=== PATIENT | female | born 1990 | race Caucasian/White ===

== ENCOUNTER 2019-09-22 17:42 | Inpatient (IN) | payer OTHER ==
--- NOTE | 2019-09-22 23:16 | HP ---
COWS - Scale Resting Pulse: 1= [place] 81-100 Sweatin=Flushed/Facial Moisture Restless Observation: 1= Difficult to Sit Still Pupil Size: 1= Pupils >than Normal Bone or Joint Aches: 4=Acute Joint/Muscle Pain Runny Nose/ Eye Tearin= Runny Nose/Eyes GI Upset > 30mins: 3= Vomiting/Diarrhea (omiting x 2, diarrhea x 3) Tremor Observation: 2= Slight Tremor Visible Yawning Observation: 1= 1-2x During Session Anxiety or Irritability: 2=Irritable/Anxious Goose Flesh Skin: 0=Smooth Skin COWS Score: 19 CIWA Score - Admission Criteria OASAS Guidelines: Admission for Medically Managed Detox: Requires at least one of the followin. CIWA greater than 12 2. Seizures within the past 24 hours 3. Delirium tremens within the past 24 hours 4. Hallucinations within the past 24 hours 5. Acute intervention needed for co occurring medical disorder 6. Acute intervention needed for co occurring psychiatric disorder 7. Severe withdrawal that cannot be handled at a lower level of care (continued vomiting, continued diarrhea, abnormal vital signs) requiring intravenous medication and/or fluids 8. Admission ROS [facility] Chief Complaint: Seeking admission to detox from heroin Allergies/Adverse Reactions: Allergies Allergy/AdvReac Type Severity Reaction Status Date / Time No Known Allergies Allergy Verified 09/22/19 23:12 History of Present Illness: 29 years old female is seeking admission to detox. This is her first admission t [facility], her last admission was at [facility] She is very very delirious, uncooperative, talking to herself and unable to answer questions. She reports history of anemia and refused to answer if she has any psych. history but secondary to her mannerisms, patient is being transferred to [facility] for evaluation for evaluation. Exam Limitations: Clinical Condition - Ebola screening Have you traveled outside of the country in the last 21 days: No Have you had contact with anyone from an Ebola affected area: No Have you been sick,other than usual withdrawal symptoms: No Do you have a fever: No Patient History - Patient Medical History Hx Anemia: Yes Hx Asthma: No Hx Chronic Obstructive Pulmonary Disease (COPD): No Hx Cancer: No Hx Cardiac Disorders: No Hx Congestive Heart Failure: No Hx Hypertension: No Hx Hypercholesterolemia: No Hx Pacemaker: No HX Cerebrovascular Accident: No Hx Dementia: No Hx Diabetes: No Hx Gastrointestinal Disorders: No Hx Liver Disease: No Hx Genitourinary Disorders: No Hx Sexually Transmitted Disorders: No Hx Renal Disease (ESRD): No Hx Thyroid Disease: No Hx Human Immunodeficiency Virus (HIV): No (Negative 2020) Hx Hepatitis C: No Hx Depression: Yes Hx Suicide Attempt: No (Attempt at age, denies suicidal ideation at this time.) Hx Bipolar Disorder: No Hx Schizophrenia: No - Patient Surgical History Past Surgical History: No - PPD History Previous Implant?: Yes Documented Results: Negative w/o proof Implanted On Prior [facility] Admission?: No PPD to be Administered?: Yes - Reproductive History Patient is a Female of Child Bearing Age (11 -55 yrs old): Yes Last Menstrual Period: 09/13/19 - Smoking Cessation Smoking history: Current every day smoker Have you smoked in the past 12 months: Yes Aproximately how many cigarettes per day: 80 Hx Chewing Tobacco Use: No Initiated information on smoking cessation: Yes 'Breaking Loose' booklet given: 09/22/19 - Substance & Tx. History Hx Alcohol Use: No Hx Substance Use: Yes Substance Use Type: Cocaine, Heroin Hx Substance Use Treatment: Yes Screened but not Admitted - Documentation of Visit Screened but not Admitted: Yes Left Prior to Completion of Assessment: No Insurance Authorization Denied: No Level of Care Recommended at this Time: ER Evaluation/Care Additional Information/Explanation: Patient is very very delirious, uncooperative, talking to herself, argumentative and refusing to answer questions. She reports history of anemia and refused to answer if she has any psych. history but secondary to her mannerisms, patient is being transferred to [facility] for further for evaluation. Breathalyzer - Breathalyzer Breathalyzer: 0 Urine Drug Screen - Test Device Lot number: [id number] Expiration date: 06/07/21 - Control Is test valid?: Yes - Results Drug screen NEGATIVE: No Urine drug screen results: ANIRUDH-Cocaine, MET-Methamphetamine, AMP-Amphetamines, FEN-Fentanyl, MOP-Opiates Inpatient Rehab Admission - Rehab Decision to Admit Inpatient rehab admission?: No
== END 2019-09-23 00:01 | disposition short-term general hospital (02) | DRG 897 ==
LOC: YASAS 17:42 → Y6N 23:28
PROVIDERS: ADMIT Allergy & Immunology; ATTEND Allergy & Immunology
PROC: HZ2ZZZZ Detoxification Services for Substance Abuse Treatment (ICD-10-PCS; principal; 2019-09-22)
DX: F11.23 Opioid dependence with withdrawal (principal); F17.210 Nicotine dependence, cigarettes, uncomplicated; F32.9 Major depressive disorder, single episode, unspecified; Z86.2 Personal history of diseases of the blood and blood-forming organs and certain disorders involving the immune mechanism
CPT/HCPCS: 36415; 80053; 81025; 85027; 86780; 93005; 93010; U0003

== ENCOUNTER 2019-09-23 11:05 | Inpatient (IN) | payer OTHER ==
--- NOTE | 2019-09-23 14:19 | BHS.RME ---
Substance Use & Tx History - Substance Use History Heroin Substance amount: 7 bags Frequency of use: Daily Substance route: Injection (ex: intravenous or skin popping) Date of Last Use: 09/22/19 - Last Treatment Date of last treatment: [place] 03/2019 Where was last treatment: Detox Physical/Psych/Mental Status - Behavior Eye Contact: Normal - Cooperativeness Cooperativeness: Cooperative - Thinking Thought Processes: Logical Thought content: Future oriented - Physical Health Problems Is patient presently having any pain?: No Does patient presently have any injuries (include location): No Does patient currently have a fever: No COWS - Scale Resting Pulse: 1= [place] 81-100 Sweatin= Chills/Flushing Restless Observation: 0= Sits Still Pupil Size: 1= Pupils >than Normal Bone or Joint Aches: 2= Severe Diffuse Aches Runny Nose/ Eye Tearin= Runny Nose/Eyes GI Upset > 30mins: 2= Nausea/Diarrhea Tremor Observation: 2= Slight Tremor Visible Yawning Observation: 2= >3x During Session Anxiety or Irritability: 2=Irritable/Anxious Goose Flesh Skin: 3=Piloerection COWS Score: 18
--- NOTE | 2019-09-23 14:25 | HP ---
COWS - Scale Resting Pulse: 1= [place] 81-100 Sweatin= Chills/Flushing Restless Observation: 0= Sits Still Pupil Size: 1= Pupils >than Normal Bone or Joint Aches: 2= Severe Diffuse Aches Runny Nose/ Eye Tearin= Runny Nose/Eyes GI Upset > 30mins: 2= Nausea/Diarrhea Tremor Observation: 2= Slight Tremor Visible Yawning Observation: 2= >3x During Session Anxiety or Irritability: 2=Irritable/Anxious Goose Flesh Skin: 3=Piloerection COWS Score: 18 CIWA Score - Admission Criteria OASAS Guidelines: Admission for Medically Managed Detox: Requires at least one of the followin. CIWA greater than 12 2. Seizures within the past 24 hours 3. Delirium tremens within the past 24 hours 4. Hallucinations within the past 24 hours 5. Acute intervention needed for co occurring medical disorder 6. Acute intervention needed for co occurring psychiatric disorder 7. Severe withdrawal that cannot be handled at a lower level of care (continued vomiting, continued diarrhea, abnormal vital signs) requiring intravenous medication and/or fluids 8. Admitting History and Physical - Admission Chief Complaint: i need help to sto using heroin History of Present Illness: this 29 years old female with heroin dependence seeking detox,withdrawal symptom, clear by [facility] return to [facility],first time to this facility History Source: Patient Limitations to Obtaining History: No Limitations - Past Medical History ...LMP: 08/26/19 ...: No Psych: Yes: Addictions - Smoking History Smoking history: Current every day smoker Have you smoked in the past 12 months: Yes Aproximately how many cigarettes per day: 80 - Alcohol/Substance Use Hx Alcohol Use: No History of Substance Use: reports: Heroin Date of Last Use: 09/22/19 - Social History Usual Living Arrangement: Yes: Alone ADL: Support Services Occupation: unemployed History of Recent Travel: No Other Social History: unemployed,no legal issue Admission ROS [facility] Chief Complaint: i need help to stop using heroin Allergies/Adverse Reactions: Allergies Allergy/AdvReac Type Severity Reaction Status Date / Time No Known Allergies Allergy Verified 09/23/19 16:21 History of Present Illness: this 30 years old female with heroin dependence seeking detox, Exam Limitations: No Limitations - Ebola screening Have you traveled outside of the country in the last 21 days: No Have you had contact with anyone from an Ebola affected area: No Have you been sick,other than usual withdrawal symptoms: No Do you have a fever: No - Review of Systems Constitutional: Malaise, Night Sweats, Changes in sleep, Weakness EENT: reports: Nose Congestion Respiratory: reports: No Symptoms reported Cardiac: reports: No Symptoms Reported GI: reports: Nausea, Abdominal cramping : reports: No Symptoms Reported Musculoskeletal: reports: Back Pain, Muscle Pain Integumentary: reports: Dryness Neuro: reports: Tremors Endocrine: reports: No Symptoms Reported Hematology: reports: No Symptoms Reported Psychiatric: reports: No Sypmtoms Reported, Judgement Intact, Mood/Affect Appropiate, Orientated x3 Other Systems: Reviewed and Negative Patient History - Patient Medical History Hx Anemia: Yes Hx Asthma: No Hx Chronic Obstructive Pulmonary Disease (COPD): No Hx Cancer: No Hx Cardiac Disorders: No Hx Congestive Heart Failure: No Hx Hypertension: No Hx Hypercholesterolemia: No Hx Pacemaker: No HX Cerebrovascular Accident: No Hx Dementia: No Hx Diabetes: No Hx Gastrointestinal Disorders: No Hx Liver Disease: No Hx Genitourinary Disorders: No Hx Sexually Transmitted Disorders: No Hx Renal Disease (ESRD): No Hx Thyroid Disease: No Hx Human Immunodeficiency Virus (HIV): No (Negative 2019) Hx Hepatitis C: No Hx Depression: Yes Hx Suicide Attempt: No ( denies suicidal ideation at this time.) Hx Bipolar Disorder: No Hx Schizophrenia: No Other Medical History: no suicidal,no homicidal - Patient Surgical History Past Surgical History: No - PPD History Previous Implant?: Yes Documented Results: Negative w/o proof Implanted On Prior [facility] Admission?: No PPD to be Administered?: Yes - Reproductive History Patient is a Female of Child Bearing Age (11 -55 yrs old): Yes Last Menstrual Period: 08/26/19 Patient : No - Smoking Cessation Smoking history: Current every day smoker Have you smoked in the past 12 months: Yes Aproximately how many cigarettes per day: 80 Hx Chewing Tobacco Use: No Initiated information on smoking cessation: Yes 'Breaking Loose' booklet given: 09/23/19 - Substance & Tx. History Hx Alcohol Use: No Hx Substance Use: Yes Substance Use Type: Heroin Hx Substance Use Treatment: Yes (03/30 [place]) - Substances abused Heroin Substance route: Injection Frequency: Daily Amount used: 7 bags Age of first use: 18 Date of last use: 09/22/19 Admission Physical Exam [facility] - Vital Signs Vital Signs: t98.3,p84,bp 198/65,r18 - Physical General Appearance: Yes: Moderate Distress, Irritable, Sweating, Anxious HEENTM: Yes: Normal ENT Inspection, NIDA, Pharynx Normal Respiratory: Yes: Lungs Clear, Normal Breath Sounds, No Respiratory Distress Neck: Yes: Within Normal Limits, Supple, Trachea in good position Breast: Yes: Breast Exam Deferred Cardiology: Yes: Within Normal Limits, Regular Rhythm, Regular Rate, S1, S2 Abdominal: Yes: Within Normal Limits, Normal Bowel Sounds, Non Tender, Soft Genitourinary: Yes: Within Normal Limits Back: Yes: Muscle Spasm Musculoskeletal: Yes: Back pain, Muscle Pain Extremities: Yes: Tremors Neurological: Yes: precision lens generator II-XII NML intact, Fully Oriented, Alert, Motor Strength 5/5 Integumentary: Yes: Dry, Track Knight Lymphatic: Yes: Within Normal Limits - Diagnostic (1) Opioid dependence with withdrawal Current Visit: Yes Status: Acute (2) IVDU (intravenous drug user) Current Visit: Yes Status: Acute (3) Nicotine dependence Current Visit: Yes Status: Acute (4) Dehydration Current Visit: Yes Status: Acute Cleared for Admission [facility] - Detox or Rehab [facility] Level of Care: Medically Managed Detox Regimen/Protocol: Methadone Breathalyzer - Breathalyzer Breathalyzer: 0 Urine Drug Screen - Test Device Lot number: [id number] Expiration date: 06/07/21 - Control Is test valid?: Yes - Results Drug screen NEGATIVE: No Urine drug screen results: ANIRUDH-Cocaine, MET-Methamphetamine, AMP-Amphetamines, FEN-Fentanyl, MOP-Opiates Inpatient Rehab Admission - Rehab Decision to Admit Inpatient rehab admission?: No
[2019-09-23 16:29] VITALS: BMI 18.6
[2019-09-23] MEDS ORDERED: METHADONE HCL 10 MG TABLET (FOR DETOX USE ONLY) PO ONE ×2 (16:35→23:45)
[2019-09-23] MEDS ORDERED: cloNIDine HCL 0.1 MG TABLET PO PRN (16:35)
[2019-09-23] MEDS ORDERED: NALOXONE HCL 0.4 MG/ML VIAL IM PRN (16:35)
[2019-09-23] MEDS ORDERED: ONDANSETRON *ODT* 4 MG TABLET SL ONE (16:36)
[2019-09-23] MEDS ORDERED: MENTHOL/PHENOL 1 EACH UD MM PRN (16:36)
[2019-09-23] MEDS ORDERED: IBUPROFEN 400 MG TABLET (FP) PO PRN (16:36)
[2019-09-23] MEDS ORDERED: ACETAMINOPHEN 325 MG TABLET (FP) PO PRN ×2 (16:36)
[2019-09-23] MEDS ORDERED: MAG HYDROX/AL HYDROX/SIMETH 30 ML UNIT-DOSE CUP PO PRN (16:36)
[2019-09-23] MEDS ORDERED: MAGNESIUM CITRATE 300 ML BOTTLE PO PRN (16:36)
[2019-09-23] MEDS ORDERED: METHOCARBAMOL 500 MG TABLET PO PRN (16:36)
[2019-09-23] MEDS ORDERED: MAGNESIUM HYDROX 2400MG/30ML ORAL SUSPENSION 30 ML CUP PO PRN (16:36)
[2019-09-23] MEDS ORDERED: NICOTINE POLACRILEX 2 MG GUM BUC PRN (16:36)
[2019-09-23] MEDS ORDERED: BISMUTH SUBSALICYLATE 524 MG/30 ML UD PO PRN (16:36)
[2019-09-23] MEDS: NICOTINE 21 MG/24 HOURS TOPICAL PATCH TD SCH (20:01)
[2019-09-23] MEDS: hydrOXYzine PAMOATE 25 MG CAPSULE (FP) PO SCH (20:02)
[2019-09-24] MEDS: THIAMINE HCL 100 MG TABLET (FP) PO SCH ×2 (00:06→22:56)
[2019-09-24] MEDS: hydrOXYzine PAMOATE 25 MG CAPSULE (FP) PO SCH ×6 (00:06→22:56)
[2019-09-24] MEDS: MELATONIN 5 MG TABLETS PO SCH ×2 (00:26→22:56)
[2019-09-24] MEDS ORDERED: METHADONE HCL 10 MG TABLET (FOR DETOX USE ONLY) ONE (09:40)
[2019-09-24] MEDS ORDERED: METHADONE HCL 5 MG TABLET (FOR DETOX USE ONLY) ONE (09:41)
[2019-09-24] MEDS ORDERED: METHADONE (DETOX) 20 MG, METHADONE (DETOX) 5 MG PO ONE (10:00)
[2019-09-24] MEDS ORDERED: NICOTINE 7 MG/24 HOURS TOPICAL PATCH TD SCH (10:00)
--- NOTE | 2019-09-24 10:13 | PN ---
BHS COWS - Scale Resting Pulse: 0= [place] 80 or Below Sweatin= Chills/Flushing Restless Observation: 0= Sits Still Pupil Size: 1= Pupils >than Normal Bone or Joint Aches: 2= Severe Diffuse Aches Runny Nose/ Eye Tearin= None GI Upset > 30mins: 2= Nausea/Diarrhea Tremor Observation of Outstretched Hands: 2= Slight Tremor Visible Yawning Observation: 0= None Anxiety or Irritability: 2=Irritable/Anxious Goose Flesh Skin: 3=Piloerection COWS Score: 13 BHS Progress Note (SOAP) Subjective: 29 years old female admitted on 09/23/19 for opiate withdrawal sx management treating with methadone detox regimetn ate small amount of breakfast in room ensure 120 ml po tid with meals Objective: 09/24/19 10:14 Vital Signs - 24 hr 09/23/19 09/23/19 09/23/19 16:24 17:03 21:14 Temperature 98.3 F 96.9 F L 97.3 F L Pulse Rate 84 76 54 L Respiratory 18 17 18 Rate Blood Pressure 198/65 H 105/66 94/66 O2 Sat by Pulse 100 100 Oximetry (%) 09/24/19 07:26 Temperature 97.3 F L Pulse Rate 53 L Respiratory 16 Rate Blood Pressure 102/64 O2 Sat by Pulse 100 Oximetry (%) 09/24/19 10:14 lab pending Assessment: 09/24/19 10:14 opiate withdrawal 09/24/19 10:15 bmi 18.6 Plan: methadone regiment ensure
[2019-09-24 10:38] LABS: ALBUMIN 3.1 g/dl (3.4-5.0); CREATININE 0.6 mg/dL (0.55-1.3); POTASSIUM 4.4 mmol/L (3.5-5.1); TOT PROT 6.4 g/dl (6.4-8.2)
[2019-09-24 10:41] LABS: BILIRUBIN,TOTAL 0.4 mg/dL (0.2-1)
[2019-09-24 10:47] LABS: HEMATOCRIT 35.4 % (32.4-45.2); HEMOGLOBIN 11.4 GM/dL (10.7-15.3); MCH 26.6 pg (25.7-33.7); MCHC 32.2 g/dl (32.0-36.0); MEAN CELL VOLUME 82.7 fl (80-96); MEAN PLT VOLUME 7.7 fl (7.5-11.1); PLATELET COUNT 272 K/MM3 (134-434); RBC 4.28 M/mm3 (3.60-5.2); RDW 13.7 % (11.6-15.6); WHITE BLOOD COUNT 8.9 K/mm3 (4.0-10.0)
[2019-09-24] MEDS: PRENATAL VITAMINS W/ FOLIC ACID TABLET (FP) PO SCH (11:45)
[2019-09-24] MEDS: NICOTINE 21 MG/24 HOURS TOPICAL PATCH TD SCH (11:45)
--- NOTE | 2019-09-24 18:53 | EKG ---
Test Reason : Blood Pressure : / mmHG Vent. Rate : 064 BPM Atrial Rate : 064 BPM P-R Int : 122 ms QRS Dur : 082 ms QT Int : 414 ms P-R-T Axes : 063 073 063 degrees QTc Int : 427 ms NORMAL SINUS RHYTHM WITH SINUS ARRHYTHMIA NORMAL ECG NO PREVIOUS ECGS AVAILABLE Confirmed by MD ADORE, LACHELLE ([id number]) on 09/24/2019 6:53:19 PM Referred By: Confirmed By:LACHELLE AVITIA MD
[2019-09-25] MEDS: hydrOXYzine PAMOATE 25 MG CAPSULE (FP) PO SCH ×2 (07:02→11:05)
[2019-09-25 09:52] VITALS: BP 99/63; PULSE 74; TEMP 97.3
[2019-09-25] MEDS ORDERED: METHADONE HCL 10 MG TABLET (FOR DETOX USE ONLY) PO ONE (10:00)
--- NOTE | 2019-09-25 10:06 | PN ---
BHS COWS - Scale Resting Pulse: 0= [place] 80 or Below Sweatin= Chills/Flushing Restless Observation: 0= Sits Still Pupil Size: 1= Pupils >than Normal Bone or Joint Aches: 2= Severe Diffuse Aches Runny Nose/ Eye Tearin= Nasal Congestion GI Upset > 30mins: 2= Nausea/Diarrhea Tremor Observation of Outstretched Hands: 1= Tremor [place], Not Seen Yawning Observation: 2= >3x During Session Anxiety or Irritability: 1=Feels Anxious/Irritable Goose Flesh Skin: 0=Smooth Skin COWS Score: 11 S Progress Note (SOAP) Subjective: 29 years old female admitted on 09/23/19 for opiate withdrawal sx management treating with methadone detox regiment ate 60% breakfast continue ensure supplement Objective: 09/25/19 10:07 Vital Signs - 24 hr 09/24/19 09/24/19 09/24/19 11:15 16:48 20:27 Temperature 98.8 F 97.1 F L 96.6 F L Pulse Rate 72 54 L 61 Respiratory 16 16 17 Rate Blood Pressure 108/73 95/56 L 100/54 L O2 Sat by Pulse 99 Oximetry (%) 09/25/19 09/25/19 06:55 08:53 Temperature 97.1 F L 97.3 F L Pulse Rate 64 74 Respiratory 16 18 Rate Blood Pressure 97/63 99/63 O2 Sat by Pulse 100 Oximetry (%) Laboratory Tests 09/23/19 09/23/19 09/24/19 14:00 14:26 08:00 WBC RBC Hgb Hct MCV MCH MCHC RDW Plt Count MPV Sodium Potassium Chloride Carbon Dioxide Anion Gap BUN Creatinine Est GFR (CKD-EPI)AfAm Est GFR (CKD-EPI)NonAf Random Glucose Calcium Total Bilirubin AST ALT Alkaline Phosphatase Total Protein Albumin POC Urine HCG, Qual Negative Syphilis Serology Non-reactive COVID-19 (GIOVANNI) Not detected 09/24/19 09/24/19 08:00 08:00 WBC 8.9 RBC 4.28 Hgb 11.4 Hct 35.4 MCV 82.7 MCH 26.6 MCHC 32.2 RDW 13.7 Plt Count 272 MPV 7.7 Sodium 141 Potassium 4.4 Chloride 110 H Carbon Dioxide 23 Anion Gap 9 BUN 9.0 Creatinine 0.6 Est GFR (CKD-EPI)AfAm 140.77 Est GFR (CKD-EPI)NonAf 121.46 Random Glucose 76 Calcium 9.0 Total Bilirubin 0.4 AST 20 ALT 18 Alkaline Phosphatase 63 Total Protein 6.4 Albumin 3.1 L POC Urine HCG, Qual Syphilis Serology COVID-19 (GIOVANNI) lab noted Assessment: 09/25/19 10:07 opiate withdrawal Plan: methadone regiment
[2019-09-25] MEDS: PRENATAL VITAMINS W/ FOLIC ACID TABLET (FP) PO SCH (11:05)
[2019-09-25] MEDS: NICOTINE 21 MG/24 HOURS TOPICAL PATCH TD SCH (11:05)
--- NOTE | 2019-09-25 13:04 | DS ---
[facility] Detox Discharge Summary Admission Date: 09/23/19 Discharge Date: 09/25/19 - History Present History: Opioid Dependence Additional Comments: 29 years old female was admitted on 09/23/19 for opiate withdrawal sx management treated with methadone detox regimebt ms smith insists to leave the detox unit today "I have to go back to foster" ms smith is alert oriented x 3 refuses to discuss reason for leaving the detox with medical staff General Appearance: Yes: Moderate Distress, Irritable, Sweating, Anxious HEENTM: Yes: Normal ENT Inspection, NIDA, Pharynx Normal Respiratory: Yes: Lungs Clear, Normal Breath Sounds, No Respiratory Distress Neck: Yes: Within Normal Limits, Supple, Trachea in good position Breast: Yes: Breast Exam Deferred Cardiology: Yes: Within Normal Limits, Regular Rhythm, Regular Rate, S1, S2 Abdominal: Yes: Within Normal Limits, Normal Bowel Sounds, Non Tender, Soft Genitourinary: Yes: Within Normal Limits Back: Yes: Muscle Spasm Musculoskeletal: Yes: Back pain, Muscle Pain Extremities: Yes: Tremors Neurological: Yes: director of programming II-XII NML intact, Fully Oriented, Alert, Motor Strength 5/5 Integumentary: Yes: Dry, Track Knight Lymphatic: Yes: Within Normal Limits Pertinent Past History: time for discharge 49 minutes treatment team met with ms smith to discuss benefits of methadone regiment completion ms is guarded denies suicidal denies homocidal no self destructive behavior noted against medical advice is appropriated - Physical Exam Results Vital Signs: Vital Signs Temperature 97.3 F L 09/25/19 08:53 Pulse Rate 74 09/25/19 08:53 Respiratory Rate 18 09/25/19 08:53 Blood Pressure 99/63 09/25/19 08:53 O2 Sat by Pulse Oximetry (%) 100 09/25/19 06:55 Pertinent Admission Physical Exam Findings: opiate withdrawal Laboratory Tests 09/23/19 09/23/19 09/24/19 14:00 14:26 08:00 WBC RBC Hgb Hct MCV MCH MCHC RDW Plt Count MPV Sodium Potassium Chloride Carbon Dioxide Anion Gap BUN Creatinine Est GFR (CKD-EPI)AfAm Est GFR (CKD-EPI)NonAf Random Glucose Calcium Total Bilirubin AST ALT Alkaline Phosphatase Total Protein Albumin POC Urine HCG, Qual Negative Syphilis Serology Non-reactive COVID-19 (GIOVANNI) Not detected 09/24/19 09/24/19 08:00 08:00 WBC 8.9 RBC 4.28 Hgb 11.4 Hct 35.4 MCV 82.7 MCH 26.6 MCHC 32.2 RDW 13.7 Plt Count 272 MPV 7.7 Sodium 141 Potassium 4.4 Chloride 110 H Carbon Dioxide 23 Anion Gap 9 BUN 9.0 Creatinine 0.6 Est GFR (CKD-EPI)AfAm 140.77 Est GFR (CKD-EPI)NonAf 121.46 Random Glucose 76 Calcium 9.0 Total Bilirubin 0.4 AST 20 ALT 18 Alkaline Phosphatase 63 Total Protein 6.4 Albumin 3.1 L POC Urine HCG, Qual Syphilis Serology COVID-19 (GIOVANNI) lab noted - Treatment Hospital Course: Detox Protocol Followed, Responded well, Discharged Condition Good Patient has Accepted a Rehab Referral to: community support resources / NA - Medication Discharge Medications: Ambulatory Orders NK [No Known Home Medication] 09/23/19 - Diagnosis (1) Substance induced mood disorder Status: Suspected (2) Nicotine dependence Status: Acute Qualifiers: Nicotine product type: cigarettes Substance use status: in withdrawal Qualified Code(s): F17.213 - Nicotine dependence, cigarettes, with withdrawal (3) Opioid dependence with withdrawal Status: Acute - AMA Did Patient Leave Against Medical Advice: Yes COWS (PN) - Opiate Withdrawal Resting Pulse: 0= [place] 80 or Below Sweatin= Chills/Flushing Restless Observation: 0= Sits Still Pupil Size: 1= Pupils >than Normal Bone or Joint Aches: 1= Mild Discomfort Runny Nose/ Eye Tearin= None GI Upset > 30mins: 2= Nausea/Diarrhea Tremor Observation of Outstretched Hands: 2= Slight Tremor Visible Yawning Observation: 0= None Anxiety or Irritability: 2=Irritable/Anxious Goose Flesh Skin: 0=Smooth Skin COWS Score: 9
[2019-09-26] MEDS ORDERED: METHADONE (DETOX) 10 MG, METHADONE (DETOX) 5 MG PO ONE (10:00)
[2019-09-27] MEDS ORDERED: METHADONE HCL 10 MG TABLET (FOR DETOX USE ONLY) PO ONE (10:00)
[2019-09-28] MEDS ORDERED: METHADONE HCL 5 MG TABLET (FOR DETOX USE ONLY) PO ONE (06:00)
== END 2019-09-25 10:50 | disposition left against medical advice (07) | DRG 894 ==
LOC: YASAS 11:05 → Y3N 16:18
PROVIDERS: ADMIT Allergy & Immunology; ATTEND Allergy & Immunology
PROC: HZ2ZZZZ Detoxification Services for Substance Abuse Treatment (ICD-10-PCS; principal; 2019-09-23)
DX: F11.23 Opioid dependence with withdrawal (principal); F17.213 Nicotine dependence, cigarettes, with withdrawal; F19.24 Other psychoactive substance dependence with psychoactive substance-induced mood disorder; F32.9 Major depressive disorder, single episode, unspecified; E86.0 Dehydration; D64.9 Anemia, unspecified
CPT/HCPCS: 36415; 80053; 81025; 85027; 86780; 93005; 93010; U0003

== ENCOUNTER 2019-11-08 14:52 | Inpatient (IN) | payer OTHER ==
--- NOTE | 2019-11-08 15:35 | BHS.RME ---
Substance Use & Tx History - Substance Use History Heroin Substance amount: 3 bundles Frequency of use: Daily Substance route: Injection (ex: intravenous or skin popping) Date of Last Use: 11/07/19 Nicotine Substance amount: one pack Frequency of use: Daily Substance route: Smoking Date of Last Use: 11/08/19 - Last Treatment Date of last treatment: September 22-, left AMA Where was last treatment: Detox Physical/Psych/Mental Status - Behavior General Behavior: Decreased activity Eye Contact: Normal - Cooperativeness Cooperativeness: Cooperative - Thinking Thought Processes: Tight Thought content: Future oriented - Physical Health Problems Is patient presently having any pain?: No Does patient presently have any injuries (include location): No Does patient currently have a fever: No COWS - Scale Resting Pulse: 1= [place] 81-100 Sweatin=Flushed/Facial Moisture Restless Observation: 1= Difficult to Sit Still Pupil Size: 0= Normal to Room Light Bone or Joint Aches: 1= Mild Discomfort Runny Nose/ Eye Tearin= Runny Nose/Eyes GI Upset > 30mins: 2= Nausea/Diarrhea Tremor Observation: 1= Tremor [place], Not Seen Yawning Observation: 0= None Anxiety or Irritability: 2=Irritable/Anxious Goose Flesh Skin: 0=Smooth Skin COWS Score: 12
[2019-11-08 16:50] VITALS: BMI 20.6
--- NOTE | 2019-11-08 17:07 | HP ---
COWS - Scale Resting Pulse: 1= [place] 81-100 Sweatin=Flushed/Facial Moisture Restless Observation: 1= Difficult to Sit Still Pupil Size: 0= Normal to Room Light Bone or Joint Aches: 2= Severe Diffuse Aches Runny Nose/ Eye Tearin= Runny Nose/Eyes GI Upset > 30mins: 2= Nausea/Diarrhea Tremor Observation: 1= Tremor Kaufman, Not Seen Yawning Observation: 1= 1-2x During Session Anxiety or Irritability: 2=Irritable/Anxious Goose Flesh Skin: 3=Piloerection COWS Score: 17 CIWA Score - Admission Criteria [facility]ASAS Guidelines: Admission for Medically Managed Detox: Requires at least one of the followin. CIWA greater than 12 2. Seizures within the past 24 hours 3. Delirium tremens within the past 24 hours 4. Hallucinations within the past 24 hours 5. Acute intervention needed for co occurring medical disorder 6. Acute intervention needed for co occurring psychiatric disorder 7. Severe withdrawal that cannot be handled at a lower level of care (continued vomiting, continued diarrhea, abnormal vital signs) requiring intravenous medication and/or fluids 8. Admitting History and Physical - Admission Chief Complaint: Pt is a 29 yo F presenting for opioid detox; "want to get clean from heroin." History of Present Illness: Pt is a 29 yo F presenting for opioid detox; "want to get clean from heroin." Pt was last here at 09/22-09/25/19 (left AMA) - was sent to [facility] for bizarre behavior during that time. Pt reports she will complete detox and rehab this time and will sign a contract. Pt reports no significant periods of time of sobriety since she started using, including after she left detox. Pt reports no specific triggers or stressors that contribute to her use. Pt reports no amphetamine use, reports possibly "cut with heroin." PMH, PSH - none Psych - pt reports no current psychiatric illnesses - zoloft, trazadone prescribed in past (pt is non-specific regarding this) Soc/Domiciled - homeless currently Legal - none - Substance Use History Heroin Substance amount: 3 bundles Frequency of use: Daily Substance route: Injection (ex: intravenous or skin popping) Date of Last Use: 11/07/19 Nicotine Substance amount: one pack Frequency of use: Daily Substance route: Smoking Date of Last Use: 11/08/19 Crack Cocaine amount - minimal frequency - 1/month route - smoking - Last Treatment Date of last treatment: September 22-, left AMA Where was last treatment: Detox History Source: Patient Limitations to Obtaining History: No Limitations - Past Medical History ...LMP: 08/26/19 Psych: Yes: Addictions - Smoking History Smoking history: Current every day smoker Have you smoked in the past 12 months: Yes Aproximately how many cigarettes per day: 80 - Alcohol/Substance Use Hx Alcohol Use: No History of Substance Use: reports: Heroin Date of Last Use: 09/22/19 - Social History ADL: Support Services Occupation: unemployed History of Recent Travel: No Admission [facility] Allergies/Adverse Reactions: Allergies Allergy/AdvReac Type Severity Reaction Status Date / Time No Known Allergies Allergy Verified 09/23/19 16:21 - Ebola screening Have you traveled outside of the country in the last 21 days: No Have you been sick,other than usual withdrawal symptoms: No Do you have a fever: No - Review of Systems Constitutional: Chills, Diaphoresis, Changes in sleep (insomnia), Unintentional Wgt. Loss (7-10 lbs over the last 7 months) EENT: reports: Other (rhinorrhea/lacrimation) Respiratory: reports: No Symptoms reported Cardiac: reports: No Symptoms Reported GI: reports: Diarrhea, Nausea : reports: No Symptoms Reported Musculoskeletal: reports: Muscle Pain (diffuse muscle aches that are worsening) Integumentary: reports: Flushing, Sweating Neuro: reports: Headache, Tremors Endocrine: reports: Flushing Hematology: reports: No Symptoms Reported Psychiatric: reports: Orientated x3, Agitated, Anxious Patient History - Patient Medical History Hx Anemia: Yes Hx Asthma: No Hx Chronic Obstructive Pulmonary Disease (COPD): No Hx Cancer: No Hx Cardiac Disorders: No Hx Congestive Heart Failure: No Hx Hypertension: No Hx Hypercholesterolemia: No Hx Pacemaker: No HX Cerebrovascular Accident: No Hx Seizures: No Hx Dementia: No Hx Diabetes: No Hx Gastrointestinal Disorders: No Hx Liver Disease: No Hx Genitourinary Disorders: No Hx Sexually Transmitted Disorders: No Hx Renal Disease (ESRD): No Hx Thyroid Disease: No Hx Human Immunodeficiency Virus (HIV): No (Negative 2020) Hx Hepatitis C: No Hx Depression: Yes Hx Suicide Attempt: No ( denies suicidal ideation at this time.) Hx Bipolar Disorder: No Hx Schizophrenia: No - Patient Surgical History Past Surgical History: No Hx Neurologic Surgery: No Hx Cataract Extraction: No Hx Cardiac Surgery: No Hx Lung Surgery: No Hx Breast Surgery: No Hx Breast Biopsy: No Hx Abdominal Surgery: No Hx Appendectomy: No Hx Cholecystectomy: No Hx Genitourinary Surgery: No Hx Section: No Hx Orthopedic Surgery: No - PPD History Date: 09/26/19 - Reproductive History Last Menstrual Period: 08/26/19 - Smoking Cessation Smoking history: Current every day smoker Have you smoked in the past 12 months: Yes Aproximately how many cigarettes per day: 20 Hx Chewing Tobacco Use: No Initiated information on smoking cessation: Yes 'Breaking Loose' booklet given: 11/08/19 Admission Physical Exam S - Vital Signs Vital Signs: Vital Signs - 24 hr 11/08/19 16:45 Temperature 98.1 F Pulse Rate 100 H Respiratory 16 Rate Blood Pressure 108/64 - Physical General Appearance: Yes: No Apparent Distress, Nourished, Appropriately Dressed, Irritable, Sweating, Anxious HEENTM: Yes: EOMI, Hearing grossly Normal, Normocephalic, Normal Voice, Rhinorrhea Respiratory: Yes: Chest Non-Tender, Lungs Clear, Normal Breath Sounds, No Respiratory Distress, No Accessory Muscle Use Neck: Yes: Supple, Trachea in good position Breast: Yes: Breast Exam Deferred Cardiology: Yes: Regular Rhythm, Regular Rate, S1, S2 Abdominal: Yes: Normal Bowel Sounds, Non Tender, Flat, Soft Genitourinary: Yes: Other (deferred) Back: Yes: Normal Inspection Musculoskeletal: Yes: full range of Motion, Gait Steady Extremities: Yes: Normal Inspection, Normal Range of Motion, Non-Tender, Tremors (fel, not seen) Neurological: Yes: Fully Oriented, Alert (patient is drowsy; but arousable to conversation), Motor Strength 5/5, Normal Mood/Affect, Normal Response Integumentary: Yes: Normal Color, Warm, Moist, Track Knight (b/l UE), Other (piloerection) - Diagnostic (1) IVDU (intravenous drug user) Current Visit: No Status: Chronic (2) Nicotine dependence Current Visit: No Status: Acute Qualifiers: Nicotine product type: cigarettes Substance use status: in withdrawal Qualified Code(s): F17.213 - Nicotine dependence, cigarettes, with withdrawal (3) Opioid dependence with withdrawal Current Visit: Yes Status: Acute Cleared for Admission [facility] - Detox or Rehab [facility] Level of Care: Medically Managed Detox Regimen/Protocol: Methadone Breathalyzer - Breathalyzer Breathalyzer: 0 Urine Drug Screen - Test Device Lot number: [id number] Expiration date: 05/16/21 - Control Is test valid?: Yes - Results Drug screen NEGATIVE: Yes Urine drug screen results: ANIRUDH-Cocaine, MET-Methamphetamine, AMP-Amphetamines, FEN-Fentanyl, MOP-Opiates Inpatient Rehab Admission - Rehab Decision to Admit Inpatient rehab admission?: No
[2019-11-08] MEDS ORDERED: cloNIDine HCL 0.1 MG TABLET PO PRN (17:38)
[2019-11-08] MEDS ORDERED: METHOCARBAMOL 500 MG TABLET PO PRN (17:38)
[2019-11-08] MEDS ORDERED: MAGNESIUM HYDROX 2400MG/30ML ORAL SUSPENSION 30 ML CUP PO PRN (17:38)
[2019-11-08] MEDS ORDERED: ACETAMINOPHEN 325 MG TABLET (FP) PO PRN ×2 (17:38)
[2019-11-08] MEDS ORDERED: MAGNESIUM CITRATE 300 ML BOTTLE PO PRN (17:38)
[2019-11-08] MEDS ORDERED: MAG HYDROX/AL HYDROX/SIMETH 30 ML UNIT-DOSE CUP PO PRN (17:38)
[2019-11-08] MEDS ORDERED: IBUPROFEN 400 MG TABLET (FP) PO PRN (17:38)
[2019-11-08] MEDS ORDERED: MENTHOL/PHENOL 1 EACH UD MM PRN (17:38)
[2019-11-08] MEDS ORDERED: NICOTINE POLACRILEX 2 MG GUM BUC PRN (17:38)
[2019-11-08] MEDS ORDERED: ONDANSETRON *ODT* 4 MG TABLET SL PRN (17:38)
[2019-11-08] MEDS ORDERED: BISMUTH SUBSALICYLATE 524 MG/30 ML UD PO PRN (17:38)
[2019-11-08] MEDS ORDERED: METHADONE HCL 10 MG TABLET (FOR DETOX USE ONLY) PO ONE (18:15)
[2019-11-08] MEDS: NICOTINE 21 MG/24 HOURS TOPICAL PATCH TD SCH (19:14)
[2019-11-08] MEDS: hydrOXYzine PAMOATE 25 MG CAPSULE (FP) PO SCH ×2 (19:15→23:01)
[2019-11-08] MEDS ORDERED: MELATONIN 5 MG TABLETS PO SCH (22:00)
[2019-11-08] MEDS ORDERED: THIAMINE HCL 100 MG TABLET (FP) PO SCH (22:00)
[2019-11-09] MEDS: hydrOXYzine PAMOATE 25 MG CAPSULE (FP) PO SCH ×2 (06:23→10:30)
[2019-11-09] MEDS ORDERED: METHADONE HCL 5 MG TABLET (FOR DETOX USE ONLY) ONE (09:00)
[2019-11-09] MEDS ORDERED: METHADONE HCL 10 MG TABLET (FOR DETOX USE ONLY) ONE (09:00)
[2019-11-09 09:39] VITALS: BP 109/74; PULSE 75; TEMP 97.5
[2019-11-09] MEDS ORDERED: diazePAM 5 MG TABLET PO PRN (09:46)
--- NOTE | 2019-11-09 09:52 | PN ---
Teaching Attending Note Name of Resident: Marah Minor ATTENDING PHYSICIAN STATEMENT I saw and evaluated the patient. I reviewed the resident's note and discussed the case with the resident. I agree with the resident's findings and plan as documented. SUBJECTIVE: OBJECTIVE: ASSESSMENT AND PLAN: 1. Opiate withdrawal Plan 1. Methadone detox protocol
[2019-11-09] MEDS ORDERED: METHADONE (DETOX) 20 MG, METHADONE (DETOX) 5 MG PO ONE (10:00)
[2019-11-09] MEDS ORDERED: PRENATAL VITAMINS W/ FOLIC ACID TABLET (FP) PO SCH (10:00)
[2019-11-09] MEDS: NICOTINE 21 MG/24 HOURS TOPICAL PATCH TD SCH (10:30)
--- NOTE | 2019-11-09 10:30 | DS ---
[facility] Detox Discharge Summary Admission Date: 11/08/19 Discharge Date: 11/09/19 - History Present History: Opioid Dependence Additional Comments: alert,oriented x 3 lung clear on auscultation bilaterally ambulation on the unit no edema of legs patient did not want to complete treatment,signed release against medical advise,the risk of leaving explained,including ,patient understood, advise to call 911 if not feeling well Pertinent Past History: ivdu nicotine dependence - Physical Exam Results Vital Signs: Vital Signs Temperature 97.5 F L 11/09/19 06:33 Pulse Rate 75 11/09/19 06:33 Respiratory Rate 18 11/09/19 06:33 Blood Pressure 109/74 11/09/19 06:33 O2 Sat by Pulse Oximetry (%) 100 11/09/19 06:33 Pertinent Admission Physical Exam Findings: withdrawal signs and symptom Vital Signs Temperature 97.5 F L 11/09/19 06:33 Pulse Rate 75 11/09/19 06:33 Respiratory Rate 18 11/09/19 06:33 Blood Pressure 109/74 11/09/19 06:33 O2 Sat by Pulse Oximetry (%) 100 11/09/19 06:33 - Medication Discharge Medications: Ambulatory Orders NK [No Known Home Medication] 09/23/19 - Diagnosis (1) Nicotine dependence Status: Acute Qualifiers: Nicotine product type: cigarettes Substance use status: in withdrawal Qualified Code(s): F17.213 - Nicotine dependence, cigarettes, with withdrawal (2) Opioid dependence with withdrawal Status: Acute (3) IVDU (intravenous drug user) Status: Chronic - AMA Did Patient Leave Against Medical Advice: Yes
--- NOTE | 2019-11-09 10:30 | PN ---
S COWS - Scale Resting Pulse: 0= [place] 80 or Below Sweatin= No chills or Flushing Restless Observation: 0= Sits Still Pupil Size: 1= Pupils >than Normal Bone or Joint Aches: 2= Severe Diffuse Aches Runny Nose/ Eye Tearin= Nasal Congestion GI Upset > 30mins: 2= Nausea/Diarrhea Tremor Observation of Outstretched Hands: 2= Slight Tremor Visible Yawning Observation: 1= 1-2x During Session Anxiety or Irritability: 2=Irritable/Anxious Goose Flesh Skin: 0=Smooth Skin COWS Score: 11 S Progress Note (SOAP) Subjective: alert,irritable,anxious,interrupted sleep,pain in the body,nausea,pain in the ba ck,agitated Objective: 11/09/19 13:30 Vital Signs Period Temp Pulse Resp BP Sys/Perez Pulse Ox Last 24 Hr 97.1 F-98.1 F 75-100 16-18 95-131/63-74 98-100 Vital Signs Temperature 97.5 F L 11/09/19 06:33 Pulse Rate 75 11/09/19 06:33 Respiratory Rate 18 11/09/19 06:33 Blood Pressure 109/74 11/09/19 06:33 O2 Sat by Pulse Oximetry (%) 100 11/09/19 06:33 Assessment: 11/09/19 13:31 withdrawal symptom Plan: continue detox methadone regimen,valium 10 mgs po q 4hrs prn for severe withdrawal q 4hrs for 72 hrs,close monitoring
--- NOTE | 2019-11-09 14:01 | EKG ---
Test Reason : Blood Pressure : / mmHG Vent. Rate : 079 BPM Atrial Rate : 079 BPM P-R Int : 126 ms QRS Dur : 086 ms QT Int : 378 ms P-R-T Axes : 066 070 058 degrees QTc Int : 433 ms NORMAL SINUS RHYTHM NORMAL ECG WHEN COMPARED WITH ECG OF 23-SEP-2019 15:47, NO SIGNIFICANT CHANGE WAS FOUND Confirmed by EDI HOYOS MD ([id number]) on 11/09/2019 2:00:45 PM Referred By: Confirmed By:EDI HOYOS MD
[2019-11-10] MEDS ORDERED: METHADONE HCL 10 MG TABLET (FOR DETOX USE ONLY) PO ONE (10:00)
[2019-11-11] MEDS ORDERED: METHADONE (DETOX) 10 MG, METHADONE (DETOX) 5 MG PO ONE (10:00)
[2019-11-12] MEDS ORDERED: METHADONE HCL 10 MG TABLET (FOR DETOX USE ONLY) PO ONE (10:00)
[2019-11-13] MEDS ORDERED: METHADONE HCL 5 MG TABLET (FOR DETOX USE ONLY) PO ONE (06:00)
== END 2019-11-09 10:12 | disposition left against medical advice (07) | DRG 894 ==
LOC: YASAS 14:52 → Y3N 18:04
PROVIDERS: ADMIT Allergy & Immunology; ATTEND Allergy & Immunology
PROC: HZ2ZZZZ Detoxification Services for Substance Abuse Treatment (ICD-10-PCS; principal; 2019-11-08)
DX: F11.23 Opioid dependence with withdrawal (principal); F14.10 Cocaine abuse, uncomplicated; F17.210 Nicotine dependence, cigarettes, uncomplicated; F32.9 Major depressive disorder, single episode, unspecified; Z59.0 Homelessness
CPT/HCPCS: 93005; 93010; U0003

== ENCOUNTER 2022-11-05 17:58 | Inpatient (IN) | payer OTHER ==
[2022-11-05 21:10] VITALS: BMI 19.3
[2022-11-05] MEDS ORDERED: cloNIDine HCL 0.1 MG TABLET PO PRN (21:38)
[2022-11-05] MEDS ORDERED: methaDONE HCL 10 MG TABLET (FOR DETOX USE ONLY) PO ONE (21:38)
[2022-11-05] MEDS ORDERED: LOPERAMIDE HCL 2 MG CAPSULE PO PRN (21:42)
[2022-11-05] MEDS ORDERED: BENZOCAINE/MENTHOL (CHLORASEPTIC ) LOZENGE MM PRN (21:42)
[2022-11-05] MEDS ORDERED: hydrOXYzine PAMOATE 25 MG CAPSULE (FP) PO PRN (21:42)
[2022-11-05] MEDS ORDERED: DICYCLOMINE HCL 10 MG CAPSULE PO PRN (21:42)
[2022-11-05] MEDS ORDERED: guaiFENesin 600 MG TABLET.ER (FP) PO PRN (21:42)
[2022-11-05] MEDS ORDERED: P-EPHED 60MG/TRIPROLIDI 2.5MG TABLET PO PRN (21:42)
[2022-11-05] MEDS ORDERED: ONDANSETRON *ODT* 4 MG TABLET SL PRN (21:42)
[2022-11-05] MEDS ORDERED: POLYETHYLENE GLYCOL (HEALTHYLAX) 3350 17 GM PACKET PO PRN (21:42)
[2022-11-05] MEDS ORDERED: METHOCARBAMOL 500 MG TABLET PO PRN (21:42)
[2022-11-05] MEDS ORDERED: MAGNESIUM HYDROX 2400MG/30ML ORAL SUSPENSION 30 ML CUP PO PRN (21:42)
[2022-11-05] MEDS ORDERED: NALOXONE HCL (KLOXXADO) 8 MG SPRAY NS PRN (21:42)
[2022-11-05] MEDS ORDERED: IBUPROFEN 600 MG TABLET (FP) PO PRN (21:42)
[2022-11-05] MEDS ORDERED: MAG HYDROX/AL HYDROX/SIMETH 30 ML UNIT-DOSE CUP PO PRN (21:42)
[2022-11-05] MEDS ORDERED: NICOTINE POLACRILEX 2 MG GUM BUC PRN (21:42)
[2022-11-05] MEDS ORDERED: BISMUTH SUBSALICYLATE 524 MG/30 ML PO PRN (21:42)
[2022-11-05] MEDS ORDERED: ACETAMINOPHEN 325 MG TABLET (FP) PO PRN (21:42)
[2022-11-05] MEDS ORDERED: NALOXONE HCL 0.4 MG/ML VIAL IM PRN (21:42)
[2022-11-05] MEDS ORDERED: BENZONATATE 200 MG CAPSULE PO PRN (21:42)
[2022-11-05] MEDS ORDERED: IBUPROFEN 400 MG TABLET (FP) PO PRN (21:42)
[2022-11-05] MEDS ORDERED: methaDONE HCL 10 MG TABLET (FOR DETOX USE ONLY) ONE (21:46)
[2022-11-05] MEDS: MELATONIN 5 MG TABLETS PO SCH (22:52)
[2022-11-05] MEDS: THIAMINE HCL 100 MG TABLET (FP) PO SCH (22:52)
[2022-11-06] MEDS: PRENATAL VITAMINS W/ FOLIC ACID TABLET (FP) PO SCH (10:33)
[2022-11-06] MEDS: MELATONIN 5 MG TABLETS PO SCH (22:58)
[2022-11-06] MEDS: THIAMINE HCL 100 MG TABLET (FP) PO SCH (22:58)
[2022-11-07] MEDS ORDERED: methaDONE HCL 10 MG TABLET (FOR DETOX USE ONLY) PO ONE (10:00)
[2022-11-07] MEDS: PRENATAL VITAMINS W/ FOLIC ACID TABLET (FP) PO SCH (10:16)
[2022-11-07] MEDS: THIAMINE HCL 100 MG TABLET (FP) PO SCH ×2 (22:19→23:45)
[2022-11-07] MEDS: MELATONIN 5 MG TABLETS PO SCH ×2 (22:19→23:45)
[2022-11-08] MEDS: PRENATAL VITAMINS W/ FOLIC ACID TABLET (FP) PO SCH (10:58)
[2022-11-08] MEDS: THIAMINE HCL 100 MG TABLET (FP) PO SCH (21:05)
[2022-11-08] MEDS: MELATONIN 5 MG TABLETS PO SCH (21:05)
[2022-11-09] MEDS: PRENATAL VITAMINS W/ FOLIC ACID TABLET (FP) PO SCH (09:46)
[2022-11-09] MEDS ORDERED: methaDONE HCL 10 MG TABLET (FOR DETOX USE ONLY) PO ONE (10:00)
[2022-11-09 10:22] LABS: HEMATOCRIT 31.7 % (32.4-45.2); HEMOGLOBIN 10.7 GM/dL (10.7-15.3); MCH 25.2 pg (25.7-33.7); MCHC 33.8 g/dl (32.0-36.0); MEAN CELL VOLUME 74.5 fl (80-96); MEAN PLT VOLUME 7.4 fl (7.5-11.1); PLATELET COUNT 325 10^3/uL (134-434); RBC 4.25 M/mm3 (3.60-5.2); RDW 14.3 % (11.6-15.6); WHITE BLOOD COUNT 9.3 K/mm3 (4.0-10.0)
[2022-11-09 10:24] LABS: POTASSIUM 4.3 mmol/L (3.5-5.1)
[2022-11-09 10:41] LABS: ALBUMIN 2.9 g/dl (3.4-5.0)
[2022-11-09 10:44] LABS: BLOOD UREA NITROGEN 6.9 mg/dL (7-18)
[2022-11-09 10:47] LABS: CREATININE 0.6 mg/dL (0.55-1.3)
[2022-11-09 10:48] LABS: BILIRUBIN,TOTAL 0.2 mg/dL (0.2-1)
[2022-11-09 10:53] LABS: TOT PROT 6.4 g/dl (6.4-8.2)
[2022-11-09] MEDS: THIAMINE HCL 100 MG TABLET (FP) PO SCH (22:55)
[2022-11-09] MEDS: MELATONIN 5 MG TABLETS PO SCH (22:55)
[2022-11-10] MEDS: PRENATAL VITAMINS W/ FOLIC ACID TABLET (FP) PO SCH ×2 (09:45→09:48)
[2022-11-10 20:59] VITALS: RESP 16
[2022-11-10] MEDS: MELATONIN 5 MG TABLETS PO SCH (22:30)
[2022-11-10] MEDS: THIAMINE HCL 100 MG TABLET (FP) PO SCH (22:30)
[2022-11-11] MEDS: PRENATAL VITAMINS W/ FOLIC ACID TABLET (FP) PO SCH (09:47)
[2022-11-11 09:51] VITALS: BP 97/59; PULSE 71; TEMP 97.8
== END 2022-11-11 10:16 | disposition other institution (70) | DRG 897 ==
LOC: YASAS 17:58 → Y3N 22:05
PROVIDERS: ADMIT Allergy & Immunology; ATTEND Surgery
PROC: HZ2ZZZZ Detoxification Services for Substance Abuse Treatment (ICD-10-PCS; principal; 2022-11-05)
DX: F11.23 Opioid dependence with withdrawal (principal); F14.20 Cocaine dependence, uncomplicated; F15.20 Other stimulant dependence, uncomplicated; F17.210 Nicotine dependence, cigarettes, uncomplicated; F19.24 Other psychoactive substance dependence with psychoactive substance-induced mood disorder; Z28.310 Unvaccinated for COVID-19; Z28.9 Immunization not carried out for unspecified reason
CPT/HCPCS: 36415; 80053; 81025; 85027; 86780; 87635